=== PATIENT | male | born 1935 | race African-American/Black ===

== ENCOUNTER 2019-01-15 19:57 | Inpatient (IN) | payer MEDICARE, OTHER ==
[~2019-01-15] VITALS: Ht 177.8 cm; Wt 56.1 kg
[2019-01-15 23:00] VITALS: BP 161/91
--- NOTE | 2019-01-15 23:05 | NUR ---
PT REC'D TO ROOM CVO7 VIA STRETCHER FROM ED, PT ASSISTED OVER TO BED, ALL MONITORS ESTABLISHED, PT AWAKE AND ALERT, ORIENTED TO PERSON, TIME, AND SITUATION, DISORIENTED TO PLACE AT THIS TIME, MOVES ALL EXTREMETIES EQUALLY, RIGHT FOREARM PIV SALINE LOCKED, WARM BLANKET PROVIDED, BED IN LOW POSITION, CALL LIGHT IN REACH.
--- NOTE | 2019-01-15 23:30 | NUR ---
BROUGHT TO BS AND HISTORY OBTAINED.
[2019-01-15] MEDS ORDERED: HYDRALAZINE HCL25 MG PO (23:32)
[2019-01-15] MEDS ORDERED: XANAX1 MG PO (23:35)
[2019-01-15] MEDS ORDERED: NORVASC2.5 MG PO (23:36)
[2019-01-15] MEDS ORDERED: ASPIRIN EC81 M1 PO (23:39)
[2019-01-15 23:56] VITALS: BP 161/92; BMI 17.7
[2019-01-16] VITALS (18 sets, daily range): BP systolic 124–161; BP diastolic 75–109; Ht 177.8 cm; Wt 56.1 kg
--- NOTE | 2019-01-16 00:30 | NUR ---
PT RESTING QUIETLY IN BED, WATCHING TV, DENIES PAIN OR NEEDS, REMAINS CONFUSED TO TIME AND PLACE, ATTEMPTED TO REORIENT AT THIS TIME.
--- NOTE | 2019-01-16 00:50 | NUR ---
JOBY COBB APRN AT BS, NEW ORDERS REC'D, FAMILY REMAINS AT BS.
--- NOTE | 2019-01-16 01:30 | NUR ---
PT ATTEMPTING TO GET OOB, STATES " I NEED TO GO TO THE BATHROOM", ASSISTED PT TO SIT ON SIDE OF BED AND VOID 100CC CLEAR YELLOW URINE, ASSISTED BACK TO BED WITHOUT DIFFICULTY, BED ALARM ON, SR UP X 2 , BED IN LOW POSITION.
--- NOTE | 2019-01-16 03:00 | NUR ---
MEDS REC'D FROM NURSING CLINICAL DIRECTOR, RIGHT FOREARM PIV INFILTRATED, 20 GAUGE RESITED TO RIGHT ANTERIOR FOREARM X 3 ATTEMPTS, FLASH NOTED, PIV SECURED, ROUTINE PROTONIX DOSE GIVEN, HS XANEX GIVEN ORDERED, WILL MONITOR FOR CHANGES
--- NOTE | 2019-01-16 05:00 | NUR ---
LAB AT FOR AM LAB DRAW
--- NOTE | 2019-01-16 06:00 | NUR ---
AT BS, UPDATE GIVEN AND QUESTIONS ANSWERED, PT RESTING ON RIGHT SIDE EYES CLOSED, RESP EVEN AND UNLABORED, VSS.
[2019-01-16 06:10] LABS: BASOPHILS 0.1 % (0-2); EOSINOPHILS 0.2 % (0-7); HEMATOCRIT 27.5 % (42.0-54.0); HEMOGLOBIN 9.6 g/dL (13.5-17.5); IMMATURE GRANULOCYTES 0.2 % (0-5); LYMPHOCYTES 7.4 % (15-50); MCH 27.7 pg (26.0-34.0); MCHC 34.9 g/dL (31.0-37.0); MCV 79.5 fL (80.0-100.0); MEAN PLATELET VOLUME 9.3 fL (7.4-10.4); MONOCYTES 6.1 % (2-11); PLATELET COUNT 225 10x3/uL (130-400); RBC 3.46 10x6/uL (4.20-6.10); RDW 15.6 % (11.5-14.5); WBC 8.8 10x3/uL (4.8-10.8)
[2019-01-16 06:37] LABS: % SATURATION 24 % (15-55); IRON 50 ug/dl (35-150); TOTAL IRON BIND CAPACITY 201 ug/dl (260-445); UNSAT IRON BIND CAPACITY 151 ug/dl (150-375)
[2019-01-16 06:52] LABS: ALBUMIN 3.3 g/dL (3.4-5.0); ANION GAP 13.3 mmol/L (8-16); BILIRUBIN - TOTAL 0.42 mg/dL (0.2-1.3); CALCIUM 9.2 mg/dL (8.5-10.1); CARBON DIOXIDE 26.3 mmol/L (21.0-32.0); CREATININE - SERUM 2.7 mg/dL (0.6-1.3); MAGNESIUM - SERUM 2.2 mg/dL (1.8-2.4); PHOSPHOROUS 3.5 mg/dL (2.5-4.9); POTASSIUM - SERUM 3.6 mmol/L (3.5-5.1); THYROID STIMULATING HORMONE 1.46 uIU/mL (0.36-3.74)
--- NOTE | 2019-01-16 10:30 | NUR ---
0725: Rec'd report and assumed care. Difficult to arouse. Disoriented to place time and situation. Follows simple commands. 0748: Consult called to Dr. Juarez. 0825: After numerous attempts to climb OOB to void I assisted him to chair. Incontinent of urine in bed and on floor. Sitting in chair while linens changed. 0830: Dr. Moreno here. No new orders. 0915: Climbing OOB. Insisting on going to bathroom. Assisted to BSC. Dr. Fritz here. HR 130s. Update given to family by Dr. Fritz. 0930: On the way to [place] when Dr. Fritz called and cancelled. 0947: Dr. Moreno notified of Dr. Fritz's concerns for possible bleeding. New orders rec'd. 0955: Stool obtained for occult sample. Assisted back to bed. remains at bedside. 1024: Dr. Moreno notified of stool positive for occult blood. Orders rec'd to consult surgery. 1027: Dr. Lopez notified of consult. No new orders. 0930:
--- NOTE | 2019-01-16 12:27 | NUR ---
TRANSFER CENTER CALLED TO ARRANGE TRANSFER TO FACILITY FOR GI.
--- NOTE | 2019-01-16 15:44 | MORECARE ---
CASE MANAGEMENT DISCHARGE SUMMARY PATIENT: SONG SIMMONS UNIT: [id number] ADM DATE: 01/15/19 AGE: 83 : 33 SEX: M ROOM/BED: [facility] AUTHOR: GINA PATHAK PHYSICIAN: REFERRING PHYSICIAN: ADOLFO AMAYA MD DATE OF SERVICE: 01/16/19 Discharge Plan Patient Name: SONG SIMMONS Facility: [facility]:[place] : 1935 Planned Disposition: Acute Care Hospital Anticipated Discharge Date: Discharge Date: Expected LOS: Initial Reviewer: [email or web address] Initial Review Date: 01/16/2019 Generated: 01/16/19 4:43 pm Patient Name: SONG SIMMONS Page [id number] at 1544 All edits/amendments must be made on the electronic document DICTATION DATE: 01/16/19 1543 NURSE PRACTICAL: KEI 01/16/19 1543 RPT#: [id number] DC DATE: STATUS: ADM IN [facility] [address] [place] [address] END OF REPORT
--- NOTE | 2019-01-16 16:06 | MORECARE ---
CASE MANAGEMENT DISCHARGE SUMMARY PATIENT: SONG SIMMONS UNIT: [id number] ADM DATE: 01/15/19 AGE: 83 : 33 SEX: M ROOM/BED: [facility] AUTHOR: GINA PATHAK PHYSICIAN: REFERRING PHYSICIAN: ADOLFO AMAYA MD DATE OF SERVICE: 01/16/19 Discharge Plan Patient Name: SONG SIMMONS [facility] [facility] 1935 Planned Disposition: Acute Care Hospital Anticipated Discharge Date: Discharge Date: Expected LOS: Initial Reviewer: [email or web address] Initial Review Date: 01/16/2019 Generated: 01/16/19 5:05 pm Comments DCP- Discharge Planning Updated by [id number]: Mercedes Finn on 01/16/19 3:[address] CM RECEIVED TELEPHONE CALL FROM PRIMARY NURSE. DR SALAS HAS RECOMMENDED THE PATIENT BE TRANSFERRED TO [facility] FOR GI SERVICES. PATIENT TRABSFERED TO [facility] FROM [facility] FOR [facility] CONSULT. 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 HOWEVER PATIENT REQUIRED 3 UNITS OF PRBCS FOR PROFOUND ANEMIA. NO GI SERVICES AVAILABLE FRIDAY- FRIDAY AT [facility]. NURSE FOLLOWING UP WITH WOOD TREATING INSPECTOR, GAYE, FOR SIGNATURE ON TRANSFER BACK AGREEMENT. Last DP export: 01/16/19 2:44 p Patient Name: SONG SIMMONS Page [id number] at 1606 All edits/amendments must be made on the electronic document DICTATION DATE: 01/16/19 1605 CALIBRATION ENGINEER: KEI 01/16/19 1605 RPT#: [id number] DC DATE: STATUS: ADM IN [facility] [address] [facility] [place] [address] END OF REPORT
--- NOTE | 2019-01-16 16:21 | NUR ---
1510: Rec'd call from transfer center regarding acceptance of patient at [facility]. 1550: Transfer back agreement signed and faxed back to [facility]. 1602: Dr. Galicia here to n physician certification for transfer. 1620: Rec'd room number for [facility]. Transfer center arranging for ambulance. 1630: Report called to Ivan SMITH at [facility].
--- NOTE | 2019-01-16 17:09 | NUR ---
1700: Discharged to [facility] via ambulance.
--- NOTE | 2019-01-18 09:50 | MORECARE ---
CASE MANAGEMENT DISCHARGE SUMMARY PATIENT: SONG SIMMONS UNIT: [id number] ADM DATE: 01/15/19 AGE: 83 : 33 SEX: M ROOM/BED: [facility] AUTHOR: GINA PATHAK PHYSICIAN: REFERRING PHYSICIAN: ADOLFO AMAYA MD DATE OF SERVICE: 01/18/19 Discharge Plan Patient Name: SONG SIMMONS [facility] [facility] 1935 Planned Disposition: Acute Care Hospital Anticipated Discharge Date: Discharge Date: 01/16/2019 Expected LOS: Initial Reviewer: [email or web address] Initial Review Date: 01/16/2019 Generated: 01/18/19 10:49 am Comments DCP- Discharge Planning Updated by [email or web address]: Mercedes Finn on 01/16/19 3:[address] CM RECEIVED TELEPHONE CALL FROM PRIMARY NURSE. DR SALAS HAS RECOMMENDED THE PATIENT BE TRANSFERRED TO [facility] FOR GI SERVICES. PATIENT TRABSFERED TO [facility] FROM [facility] FOR [facility] CONSULT. 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 HOWEVER PATIENT REQUIRED 3 UNITS OF PRBCS FOR PROFOUND ANEMIA. NO GI SERVICES AVAILABLE FRIDAY- FRIDAY AT [facility]. NURSE FOLLOWING UP WITH POLICE ACADEMY INSTRUCTOR, GAYE, FOR SIGNATURE ON TRANSFER BACK AGREEMENT. Last DP export: 01/16/19 3:06 p Patient Name: SONG SIMMONS Page [id number] at 0950 All edits/amendments must be made on the electronic document DICTATION DATE: 01/18/19948 SUPERVISOR COMPUTER OPERATIONS: KEI 01/18/19948 RPT#: [id number] DC DATE:01/16/19 STATUS: DIS IN [facility] [address] [place] [address] END OF REPORT
== END 2019-01-16 17:00 | disposition short-term general hospital (02) | DRG 68 ==
LOC: D.CVICU 19:57
PROVIDERS: ADMIT Family Medicine; ATTEND Family Medicine
DX: I65.23 Occlusion and stenosis of bilateral carotid arteries (principal); K21.9 Gastro-esophageal reflux disease without esophagitis; I12.9 Hypertensive chronic kidney disease with stage 1 through stage 4 chronic kidney disease, or unspecified chronic kidney disease; N18.9 Chronic kidney disease, unspecified; S01.00XA Unspecified open wound of scalp, initial encounter; K59.00 Constipation, unspecified; D64.9 Anemia, unspecified